=== PATIENT | female | born 1930 | race Caucasian/White ===

== ENCOUNTER 2020-01-23 13:07 | Outpatient (CLI) | payer OTHER | END 2020-01-23 13:09 | disposition home or self-care (01) | LOC: NUCLEAR 13:07 | PROVIDERS: ATTEND Orthopaedic Surgery | DX: M81.0 Age-related osteoporosis without current pathological fracture (principal) ==

== ENCOUNTER 2020-02-11 09:51 | Outpatient (CLI) | payer OTHER | END 2020-02-11 10:04 | disposition home or self-care (01) | LOC: RAD 09:51 | PROVIDERS: ATTEND Orthopaedic Surgery | DX: M87.851 Other osteonecrosis, right femur (principal); M16.11 Unilateral primary osteoarthritis, right hip; M25.552 Pain in left hip; Z76.89 Persons encountering health services in other specified circumstances; M54.5 Low back pain; M16.0 Bilateral primary osteoarthritis of hip ==